=== PATIENT | female | born 1990 | race Caucasian/White ===

== ENCOUNTER 2016-12-24 21:59 | Emergency (ER) | payer SELFPAY ==
[~2016-12-24] VITALS: Ht 154.9 cm; Wt 88.9 kg
[~2016-12-24 21:59] MED LIST: CALC-143 PO; PREN1TAB62 PO
[2016-12-24 22:02] VITALS: Ht 154.9 cm; Wt 88.9 kg
[2016-12-25] MEDS ORDERED: TETRACAINE 0.5% 4 ML OPH LEFT EYE SCH
[2016-12-25] MEDS ORDERED: FLUORESCEIN STRIP LEFT EYE ONE
[2016-12-25] MEDS ORDERED: VALA10004 PO (00:52)
[2016-12-25] MEDS ORDERED: HYDR-906 PO (00:52)
--- NOTE | 2016-12-25 01:11 | ERD ---
ER Documentation Chief Complaint Date/Time DATE: 12/25/16 TIME: 01:00 Chief Complaint LEFT FACIAL SWELLING AND PAIN X 3 DAYS HPI 26 year old female with no significant past medical history presents to the ED complaining of left facial swelling and pain that started 3 days ago. States that the left side of her face hurts. States that she also noticed a rash on the top of the left side of her scalp but is unsure when it occurs. Reports that she also has a rash noted on her bilateral breasts that occur and heal at different times. Reports that she has slight left eye pain. Reports that she does not wear glasses or contacts. States that she has had bilateral blurred vision 1 year ago and states that she needs glasses. Denies any fever, abdominal pain, headache, weakness, dizziness, seizures, numbness or tingling. ROS All systems reviewed and are negative except as per history of present illness. Medications Home Meds Active Scripts Hydrocodone/Acetaminophen ([place] 5-325 Tablet) 1 Each Tablet, 1 TAB PO Q6H Y for PAIN, #14 TAB Prov:BRI BARNHART PA-C 12/25/16 Valacyclovir HCl (Valtrex) 1,000 Mg Tablet, 1000 MG PO TID for 10 Days, TAB Prov:BRI BARNHART PA-C 12/25/16 Reported Medications Calcium Citrate/Vitamin D (Citracal-Vitamin D 200 MG-250) 1 Each Tablet, 1 EACH PO DAILY, TAB 08/18/16 Vit-Iron Fumarate-FA ( Vitamin Tablet) 1 Each Tablet, 1 TAB PO DAILY, TAB 08/12/16 Allergies Allergies: Coded Allergies: No Known Allergy (Unverified , 12/24/16) PMhx/Soc Medical and Surgical Hx: pt denies Medical Hx, pt denies Surgical Hx History of Surgery: No Anesthesia Reaction: No Hx Neurological Disorder: No Hx Respiratory Disorders: No Hx Cardiac Disorders: No Hx Psychiatric Problems: No Hx Miscellaneous Medical Probl: No Hx Alcohol Use: No Hx Substance Use: No Hx Tobacco Use: No Smoking Status: Never smoker Physical Exam Vitals Vital Signs Date Time Temp Pulse Resp B/P Pulse Ox O2 Delivery O2 Flow Rate FiO2 12/24/16 22:02 97.1 93 16 138/78 99 Physical Exam Const: [id number]-ledtqnhtu, well-nourished. In no acute distress. Head: Atraumatic, normocephalic Eyes: Normal Conjunctiva without injection. No purulent discharge. PERRLA. EOMI. patient gave consent to do an eye exam. ENT: Normal external ear. Ear canal without erythema. Tympanic membrane pearly hunter without effusion or bulging. Nasal canal clear with normal turbinates. Moist oropharynx without tonsillar exudates. Non-erythematous pharynx. Uvula midline. No drooling. No trismus. No Ruiz's height sign. No Sosa sign. Neck: No cervical midline tenderness. Full range of motion. No meningismus. No cervical lymphadenopathy. No JVD. Resp: Clear to auscultation bilaterally. No wheezing, rhonchi, rales, or crackles. No accessory muscle use. No retractions. Cardio: Regular rate and rhythm. No murmurs, rubs or gallops. Abd: Soft, non tender, non distended. Normal bowel sounds. No palpable masses. No rebound tenderness. No guarding. Negative McBurney's Point. Negative Tovar's Sign. Skin: Normal skin turgor. No petechiae. Grouped vesicular lesions noted on the left side of patient's anterior scalp following a dermatome. No surrounding erythema, edema, bleeding noted. Back: No midline tenderness. No CVA tenderness. Ext: No cyanosis, or edema. Distal pulses intact bilaterally. Neur: Awake and alert. Normal gait. Normal coordination. Cranial Nerves II- VII intact. Normal finger to nose. Muscle strength 5/5. Sensation intact. Psych: Normal Mood and Affect Results 24 hrs Current Medications Medications (Trade) Dose Ordered Sig/Mateo Route PRN Reason Start Time Stop Time Status Last Admin Dose Admin Fluorescein Sodium (Urbga-L-Wpcln) 1 strip ONCE ONCE LEFT EYE 12/25/16 00:00 12/25/16 00:01 DC Tetracaine HCl (Tetracaine 0.5% Steri-Unit Constanza) 1 drop NOW LEFT EYE 12/25/16 00:00 Procedures/MDM 26-year-old female with no significant past medical history presents the ED complaining of left initial pain and swelling associated with a rash. Patient is afebrile and nontoxic-appearing. Patient has normal vital signs. Patient's physical exam is consistent with shingles noted since patient's rash is noted to be following a dermatome on the left side of patient's face. Eye Exam w/ Wood's lamp: Visual Acuity: [L 20/200 R 20/100 Bilateral 20/200] Visual Sosa: Intact in all four quadrants bilaterally Lac ducts/glands: No swelling Lids w/ evertion: Normal, no foreign body Conj/[place]: Clear, negative Fluorescein/Kareem's. No dendritic lesions noted. No evidence of herpetic keratitis noted. Anterior Chamber: Clear Low suspicion for differential diagnosis include but is not limited to allergic contact dermatitis, urticaria, insect bites, cutaneous candidiasis, eczema, scabies, tinea infection, erythema multiforme, psoriasis, SJS/TEN, sepsis, cellulitis, necrotizing fascitis, or other emergent conditions. Low suspicion for acute myocardial infarction, pneumothorax, pneumonia, cardiac tamponade, pulmonary embolism, pleural effusion, AAA, aortic dissection, Boerhaave's syndrome, cardiac dysrhythmias,meningitis, intracranial bleed, seizure, stroke, TIA or other emergent conditions. This case was discussed with my supervising physician, Dr. Marcos who stated that patient can be managed on outpatient basis Discharge medications: Valtrex, [place] Follow up with primary care physician in 1-2 days. Instructed patient to return to the ED sooner for any worsening symptoms. Patient's questions were answered. Patient understood and agreed with discharge plan. Patient discharged stable. Departure Diagnosis: Primary Impression: Shingles Herpes zoster complications: without complications Qualified Code: B02.9 - Herpes zoster without complication Condition: Stable Patient Instructions: Shingles (Herpes Zoster) Referrals: [facility] YOU HAVE RECEIVED A MEDICAL SCREENING EXAM AND THE RESULTS INDICATE THAT YOU DO NOT HAVE A CONDITION THAT REQUIRES URGENT TREATMENT IN THE EMERGENCY DEPARTMENT. FURTHER EVALUATION AND TREATMENT OF YOUR CONDITION CAN WAIT UNTIL YOU ARE SEEN IN YOUR DOCTORS OFFICE WITHIN THE NEXT 1-2 DAYS. IT IS YOUR RESPONSIBILITY TO MAKE AN APPOINTMENT FOR FOLOW-UP CARE. IF YOU HAVE A PRIMARY DOCTOR --you should call your primary doctor and schedule an appointment IF YOU DO NOT HAVE A PRIMARY DOCTOR YOU CAN CALL OUR PHYSICIAN REFERRAL HOTLINE AT IF YOU CAN NOT AFFORD TO SEE A PHYSICIAN YOU CAN CHOSE FROM THE FOLLOWING [facility] [address] [facility] [address]. [facility] [address] [facility] [address] [facility] [address] [facility] [address] [facility]. [facility]. [address] [facility]. [facility] YOU HAVE RECEIVED A MEDICAL SCREENING EXAM AND THE RESULTS INDICATE THAT YOU DO NOT HAVE A CONDITION THAT REQUIRES URGENT TREATMENT IN THE EMERGENCY DEPARTMENT. FURTHER EVALUATION AND TREATMENT OF YOUR CONDITION CAN WAIT UNTIL YOU ARE SEEN IN YOUR DOCTORS OFFICE WITHIN THE NEXT 1-2 DAYS. IT IS YOUR RESPONSIBILITY TO MAKE AN APPOINTMENT FOR FOLOW-UP CARE. IF YOU HAVE A PRIMARY DOCTOR --you should call your primary doctor and schedule and appointment IF YOU DO NOT HAVE A PRIMARY DOCTOR YOU CAN CALL OUR PHYSICIAN REFERRAL HOTLINE AT . IF YOU CAN NOT AFFORD TO SEE A PHYSICIAN YOU CAN CHOSE FROM THE FOLLOWING [facility] INSTITUTIONS: [facility] [address] [place] [address] [facility] [address] [place] [address] [facility] + [facility] [address] [place] [address] [facility] Hours: Mon - Fri 9:00 AM - 5:00 PM Additional Instructions: You must follow up with the opthalmologist within 24 hours for further evaluation and treatment. Call your primary care doctor TOMORROW for an appointment during the next 1-2 days.See the doctor sooner or return here if your condition worsens before your appointment time. You have been given a medicine which may cause drowsiness.DO NOT DRIVE OR OPERATE DANGEROUS MACHINERY while taking this medicine! BRI BARNHART PA-C Dec 25, 2016 01:10
[2016-12-25 01:19] VITALS: BP 112/69; PULSE 75; RESP 20; TEMP 98
== END 2016-12-25 01:20 | disposition home or self-care (01) ==
LOC: FTE 21:59
DX: B02.9 Zoster without complications (principal)
CPT/HCPCS: 99284

== ENCOUNTER 2018-02-05 09:48 | Outpatient (CLI) | END 2018-02-05 15:04 | disposition home or self-care (01) ==

== ENCOUNTER 2018-04-26 04:18 | Inpatient (IN) | END 2018-04-28 15:37 | disposition home or self-care (01) | DRG 775 ==